=== PATIENT | female | born 1950 | race Caucasian/White ===

== ENCOUNTER 2017-02-05 12:12 | Day surgery (SDC) | payer OTHER ==
[~2017-02-05 12:12] MED LIST: ACTOS15 MG PO; ANCEF,KEFZ2 GM/100 M IV; CILOSTAZOL100 MG PO; COZAAR50 MG PO; CRESTOR10 MG PO; CYMBALTA60 MG PO; ENDOCET 5-3251 EACH PO; GLUCOPHAGE500 MG PO; INVANZ1 GM IV; LANTUS 3 M100 UNITS/ SC; LANTUS 3 M100 UNITS1 SQ; LEVEMIR100 UNIT/2 SC; LIPITOR80 MG PO; NORVASC10 MG PO; NOVOLOG PE100 UNITS/ SC; Pletal PO; TRAMADOL HCL50 MG PO
[2017-02-05] MEDS ORDERED: TOUJEO SOL300 UNIT/1 SC (13:30)
[2017-02-05] MEDS ORDERED: ATORVASTATIN CA40 MG PO ×2 (13:31→13:34)
[2017-02-05 13:32] LABS: POINT-OF-CARE METER ID UU13113696
[2017-02-05] MEDS ORDERED: CYMBALTA60 MG PO (13:35)
[2017-02-05] MEDS ORDERED: NORVASC5 MG PO (13:35)
[2017-02-05] MEDS ORDERED: BACTRIM,SEPT1 TABLET PO (13:36)
[2017-02-05] MEDS ORDERED: CILOSTAZOL50 MG PO (13:48)
[2017-02-05] MEDS ORDERED: ASPIR 8181 M1 PO (13:48)
== END 2017-02-05 18:46 | disposition home or self-care (01) ==
LOC: CATH 12:12
PROVIDERS: Surgery
DX: I70.232 Atherosclerosis of native arteries of right leg with ulceration of calf (principal); I70.312 Atherosclerosis of unspecified type of bypass graft(s) of the extremities with intermittent claudication, left leg; I77.1 Stricture of artery; L97.211 Non-pressure chronic ulcer of right calf limited to breakdown of skin; F17.200 Nicotine dependence, unspecified, uncomplicated; E11.51 Type 2 diabetes mellitus with diabetic peripheral angiopathy without gangrene; I10 Essential (primary) hypertension; E78.5 Hyperlipidemia, unspecified; Z86.14 Personal history of Methicillin resistant Staphylococcus aureus infection; Z79.4 Long term (current) use of insulin; Z88.0 Allergy status to penicillin; Z88.2 Allergy status to sulfonamides
CPT/HCPCS: 82948; C1725; C1760; C1769; C1887; C1894; J1644; J2250; J3010; S0020

== ENCOUNTER → 2017-11-06 | Outpatient (CLI) | payer OTHER ==
[~2017-11-06] MED LIST changes: +ASPIR 8181 M1 PO; +ATORVASTATIN CA40 MG PO; +BACTRIM,SEPT1 TABLET PO; +CILOSTAZOL50 MG PO; +NORVASC5 MG PO; +TOUJEO SOL300 UNIT/1 SC
== END | disposition home or self-care (01) ==
LOC: CDC 10:30
DX: Z01.810 Encounter for preprocedural cardiovascular examination (principal); I70.25 Atherosclerosis of native arteries of other extremities with ulceration; R94.31 Abnormal electrocardiogram [ECG] [EKG]
CPT/HCPCS: 93000